=== PATIENT | male | born 1965 | race Asian ===

== ENCOUNTER 2019-06-28 14:37 | Emergency (ER) | payer SELFPAY ==
[~2019-06-28] VITALS: Ht 165.1 cm; Wt 50.3 kg
--- NOTE | 2019-06-28 14:40 | NUR ---
PT TAKEN TO BED 08 BY EMS
[2019-06-28 14:41] VITALS: BP 118/76
--- NOTE | 2019-06-28 14:45 | NUR ---
54 Y/O MALE BIBA ALS C/O DIZZINESS, ABD PAIN, AND NAUSEA X 1 WK WORSENING TODAY. STATES 8/10 SHARP PAIN TO EPIGASTRIC REGION. DENIES VOMITING/DIARRHEA. ABD SOFT/FLAT, NONTENDER TO PALP. BOWEL SOUNDS PRESENT X 4 QUAD. WAS GIVEN 4MG ODT ZOFRAN IN ROUTE. SEIZURE PADS PLACED ON BED. PT ON MONITOR. RR EVEN AND UNLABORED. VSS. MEDHX: SEIZURES, HYPERLIPIDEMIA ALLERGIES: NKA
--- NOTE | 2019-06-28 15:26 | NUR ---
DR ACE AT BEDSIDE EXAMINING PT
[2019-06-28] MEDS: NACL 0.9% 1,000 ML IV ONE (16:05)
--- NOTE | 2019-06-28 16:16 | NUR ---
PT TO CT VIA [facility]
[2019-06-28 16:20] LABS: BASOPHILS % (AUTO) 0.5 % (0.0-2.0); EOSINOPHILS # (AUTO) 0.4 K/uL (0-0.4); EOSINOPHILS % (AUTO) 4.5 % (0.0-4.0); HEMATOCRIT 37.4 % (36-52); HEMOGLOBIN 12.8 g/dL (12.0-18.0); LYMPHOCYTES # (AUTO) 2.1 K/uL (2.0-11.5); LYMPHOCYTES % (AUTO) 25.8 % (20.5-51.1); MEAN CORPUSCULAR HEMOGLOBIN 31 pg (27-31); MEAN CORPUSCULAR HGB CONC 34 g/dL (33-37); MEAN CORPUSCULAR VOLUME 89.4 fL (80-94); MONOCYTES # (AUTO) 1.1 K/uL (0.8-1.0); MONOCYTES % (AUTO) 13.3 % (1.7-9.3); NEUTROPHILS # (AUTO) 4.5 K/uL (1.8-7.7); NEUTROPHILS % (AUTO) 55.9 % (42.2-75.2); PLATELET COUNT (AUTO) 250 K/uL (140-450); RED BLOOD CELL COUNT(AUTO) 4.18 MIL/uL (4.20-6.10); RED CELL DISTRIBUTION WIDTH 12.4 % (11.6-13.7); WHITE BLOOD COUNT (AUTO) 8.1 K/uL (4.8-10.8)
--- NOTE | 2019-06-28 16:25 | NUR ---
RETURN FROM CT
[2019-06-28 16:41] LABS: ANION GAP 9.2 (8-16); CARBON DIOXIDE 34.9 mmol/L (21-32); POTASSIUM 4.1 mmol/L (3.5-5.1); TOTAL BILIRUBIN 0.4 mg/dL (0.0-1.0)
--- NOTE | 2019-06-28 16:41 | NUR ---
URINE COLLECTED FROM PT AND TAKEN TO LAB
[2019-06-28 17:33] LABS: APPEARANCE,URINE CLEAR (CLEAR); BILIRUBIN,URINE NEGATIVE (NEGATIVE); BLOOD, URINE NEGATIVE (NEGATIVE); COLOR,URINE YELLOW (YELLOW); LEUKOCYTE ESTERASE ,URINE NEGATIVE (NEGATIVE); NITRITE, URINE NEGATIVE (NEGATIVE); UGLUCOSE NEGATIVE (NEGATIVE)
--- NOTE | 2019-06-28 17:36 | NUR ---
PT SITTING UPRIGHT ON CELL PHONE, AWAKE AND ALERT. NO C/O PAIN AT THIS TIME. WILL CONTINUE TO MONITOR
--- NOTE | 2019-06-28 19:05 | NUR ---
REPORT GIVEN TO NIKIA GABRIEL. TRANSFER OF CARE AT THIS TIME
--- NOTE | 2019-06-28 19:22 | NUR ---
CALLED REPORT TO [facility] ER. REPORT GIVEN TO NIKIA ORR. ETA 45 MINUTES FOR TRANSFER.
--- NOTE | 2019-06-28 19:55 | NUR ---
FAMILY AT BEDSIDE. VSS ON MONITOR. SITTING UP IN BED.
--- NOTE | 2019-06-28 21:02 | NUR ---
[facility] TRANSPORT AT BEDSIDE
[2019-06-28 21:07] VITALS: BP 110/69
--- NOTE | 2019-06-28 21:07 | NUR ---
PT TAKEN BY ZELDA TO [facility] ER
--- NOTE | 2019-06-28 21:08 | NUR ---
PATIENT TRANSFERED TO [facility] BY [facility]. REPORT GIVEN. PATIENT AAO, VSS ON MONITOR AT TIME OF TRANSFER OF CARE.
== END 2019-06-28 21:08 | disposition short-term general hospital (02) ==
LOC: MED 14:37
DX: I63.9 Cerebral infarction, unspecified (principal); R56.9 Unspecified convulsions; E78.00 Pure hypercholesterolemia, unspecified
CPT/HCPCS: 36415; 70450; 71045; 80053; 81003; 83690; 84484; 85025; 93005; 96360; 99285; J7030; Q0092

== ENCOUNTER 2019-08-14 14:04 | Inpatient (IN) | payer MEDICAID ==
[~2019-08-14] VITALS: Ht 158.8 cm; Wt 51.3 kg
--- NOTE | 2019-08-14 14:41 | NUR ---
to ctscan via gurney , awake, alert, afibrile.
--- NOTE | 2019-08-14 14:55 | NUR ---
PT BACK FROM CTSCAN.
--- NOTE | 2019-08-14 14:58 | NUR ---
C/O EPIGASTRIC PAIN X 2 MONTHS. EPIGASTRIC TENDERNESS TO PALPATION. DENIES N/V/D. LAST BM YESTERDAY.PT AWAKE , ALERT, AFIBRILE , AMBULATORY WITH STEADY GAIT, SCE , CBS BLF.FLAT SOFT NABS, NONTENDER. HX: SEIZURE, HIGH CHOLESTEROL
--- NOTE | 2019-08-14 15:02 | NUR ---
PT COMFORTABLE IN BED , AWAKE , ALERT , SIDE RAILS UP X 1 AND LOCK.
[2019-08-14 16:02] LABS: BASOPHILS % (AUTO) 0.3 % (0.0-2.0); EOSINOPHILS # (AUTO) 0.2 K/uL (0-0.4); EOSINOPHILS % (AUTO) 3.3 % (0.0-4.0); HEMOGLOBIN 9.9 g/dL (12.0-18.0); LYMPHOCYTES # (AUTO) 1.6 K/uL (2.0-11.5); LYMPHOCYTES % (AUTO) 21.6 % (20.5-51.1); MEAN CORPUSCULAR HEMOGLOBIN 29 pg (27-31); MEAN CORPUSCULAR HGB CONC 33 g/dL (33-37); MEAN CORPUSCULAR VOLUME 88.7 fL (80-94); MONOCYTES # (AUTO) 1.1 K/uL (0.8-1.0); MONOCYTES % (AUTO) 15.2 % (1.7-9.3); NEUTROPHILS # (AUTO) 4.4 K/uL (1.8-7.7); NEUTROPHILS % (AUTO) 59.6 % (42.2-75.2); PLATELET COUNT (AUTO) 190 K/uL (140-450); RED BLOOD CELL COUNT(AUTO) 3.38 MIL/uL (4.20-6.10); RED CELL DISTRIBUTION WIDTH 13.1 % (11.6-13.7); WHITE BLOOD COUNT (AUTO) 7.4 K/uL (4.8-10.8)
--- NOTE | 2019-08-14 16:02 | NUR ---
LABS AT BEDSIDE .
[2019-08-14 16:22] LABS: ALBUMIN 3.5 g/dL (3.4-5.0); ANION GAP 14.1 (8-16); CARBON DIOXIDE 27.7 mmol/L (21-32); CREATININE 0.8 mg/dL (0.6-1.3); POTASSIUM 3.8 mmol/L (3.5-5.1); TOTAL BILIRUBIN 0.5 mg/dL (0.0-1.0)
--- NOTE | 2019-08-14 16:35 | NUR ---
DR GILBERT AT BEDSIDE REEVALAUTING PT.
--- NOTE | 2019-08-14 16:41 | NUR ---
DR GILBERT TALK TO SATELLITE COMMUNICATIONS ENGINEER VIA PHONE , REEVALUATE PT.
--- NOTE | 2019-08-14 17:01 | NUR ---
Dr GILBERT ON TRANSFER AND PUMPHOUSE OPERATOR CHIEF PHONE #[phone]
--- NOTE | 2019-08-14 18:20 | NUR ---
RECEIVED REPORT FROM ER NURSE DEB-NIKIA. PT ARRIVED TO UNIT VIA GURNEY AND SELF AMBULATED TO BED. PT STABLE AT THIS TIME. NO S/S OF RESPIRATORY DISTRESS OR DISCOMFORT NOTED AT THIS TIME. WILL CONTINUE TO MONITOR.
--- NOTE | 2019-08-14 18:20 | NUR ---
Patient will be admitted to care of DR ARAIZA. Admited to [facility]. Will go to room 106 b. Belongings list completed. Report to lucero schaefer.
[2019-08-14] MEDS ORDERED: MORPHINE SULFATE 2 MG/ML SYR IVP PRN (18:35)
[2019-08-14] MEDS ORDERED: ACETAMINOPHEN 325 MG TAB PO PRN (18:35)
[2019-08-14] MEDS ORDERED: HYDROcodone/APAP 5/325 MG 1 TAB TAB PO PRN (18:35)
[2019-08-14] MEDS ORDERED: LORazepam 2 MG/ML VIAL IM/IVP PRN (18:35)
[2019-08-14] MEDS ORDERED: ONDANSETRON 4 MG/2 ML VIAL IM/IVP PRN (18:35)
[2019-08-14] MEDS ORDERED: DOCUSATE SODIUM 100 MG GELCAP PO PRN (18:35)
--- NOTE | 2019-08-14 19:00 | NUR ---
IV STARTED ON THE LEFT FOREARM, BUT HAD TO TAKE IT OFF SINCE THE IV WAS NOT PATENT. Addendum: 08/15/19 at 0131 by Pepper Ernandez RN DENY MCGINNIS
--- NOTE | 2019-08-14 19:20 | NUR ---
RECEIVED REPORT FROM NIKIA CASEY AM SHIFT FOR CONTINUITY OF CARE, PT AWAKE, A O X 2-3, W/ SOME PERIOD OF FORGETFULNESS. PATIENT MONEGASQUE BUT UNDERSTANDS FILIPINO. SILVANA, DAUGHTER WAS ON THE PHONE W/ DR. MOCTEZUMA. TO GET CONSENT FOR CT SCAN OF CHEST/ PELVIS/ ABDOMEN WITH CONTRAST. ALTHOUGH PT CAN SIGN FOR HIMSELF ALSO. NO IV ON PATIENT WHEN RECEIVED FROM NIKIA CASEY. WILL HAVE TO START IV FOR THE CT SCAN W/ CONTRAST. PLACED PT ON LOW BED. WILL CONTINUE TO MONITOR
--- NOTE | 2019-08-14 19:30 | NUR ---
IV STARTED ON THE LEFT FOREARM, BUT HAD TO TAKE IT OFF SINCE THE IV WAS NOT PATENT.
[2019-08-14 20:00] VITALS: BP 151/89
--- NOTE | 2019-08-14 20:00 | NUR ---
ANOTHER ATTEMPT AT IV INSERTED ON THE RIGHT FOREARM G 20, PATENT AND INTACT. WITH TOTAL OF 2 ATTEMPTS. NO SWELLING, NO INFILTRATION. WILL START IV SOON DONE WITH THE PROCEDURE(CT SCAN OF THE CHEST/ PELVIS/ ABD W/ CONTRAST)
[2019-08-14] MEDS ORDERED: MECLIZINE 25 MG TAB PO PRN (20:30)
--- NOTE | 2019-08-14 21:15 | NUR ---
PATIENT BROUGHT TO THE CT SCAN RADIOLOGY DEPT BY DONNA VIA WHEELCHAIR.
[2019-08-14] MEDS ORDERED: GABA300C PO (21:45)
[2019-08-14] MEDS ORDERED: LIP80 PO (21:45)
[2019-08-14] MEDS ORDERED: KEP500 PO (21:45)
[2019-08-14] MEDS: DEXT 5% /NACL 0.9% 1,000 ML IV SCH (21:55)
[2019-08-14 22:05] LABS: PROTHROMBIN TIME 10.1 secs (10.8-13.4)
[2019-08-14 22:07] LABS: MAGNESIUM 1.9 mg/dL (1.8-2.4); PHOSPHORUS 4.7 mg/dL (2.5-4.9); THYROID STIMULATING HORMONE 1.68 uIU/mL (0.34-3.74)
[2019-08-14] MEDS ORDERED: ATORVASTATIN 80 MG TAB PO SCH (22:30)
--- NOTE | 2019-08-14 22:40 | NUR ---
PATIENT WHEELED BACK TO ROOM, NO SIGNS AND SYMPTOMS OF DISTRESS, PLACED BACK ON BED COMFORTABLY, WILL START ON THE IVF ORDER PT JUST CAME BACK FROM CT SCAN. WILL CONTINUE TO MONITOR
[2019-08-15] VITALS: BP 97/65
--- NOTE | 2019-08-15 03:00 | NUR ---
PT ABLE TO GO TO BATHROOM STEADY GAIT,INDEPENDENT. VOIDED 2X
[2019-08-15 04:00] VITALS: BP 98/60
--- NOTE | 2019-08-15 06:58 | NUR ---
PT EASILY AWAKENED, A O X 3, SOME MILD FORGETFULNESS, WILL ENDORSE TO NEXT SHIFT.
[2019-08-15] MEDS: DEXT 5% /NACL 0.9% 1,000 ML IV SCH (07:01)
--- NOTE | 2019-08-15 07:35 | NUR ---
BEDSIDE REPORT RECEIVED FROM SOLAR BUSINESS DEVELOPER NURSE, PT SLEEPING QUIETLY IN NO ACUTE DISTRESS, AROUSES EASILY TO VOICE, DENIES PAIN OR DISCOMFORT, RESP EVEN UNLABORED ON RA, SKIN WARM DRY COLOR WNL, POC REVIEWED, NO IMMEDIATE NEEDS AT THIS TIME WILL CONTINUE TO MONITOR.
[2019-08-15 07:51] LABS: BASOPHILS # (AUTO) 0.1 K/uL (0.00-0.22); BASOPHILS % (AUTO) 0.7 % (0.0-2.0); EOSINOPHILS # (AUTO) 0.4 K/uL (0-0.4); EOSINOPHILS % (AUTO) 4.8 % (0.0-4.0); HEMATOCRIT 30.1 % (36-52); HEMOGLOBIN 10.1 g/dL (12.0-18.0); LYMPHOCYTES # (AUTO) 1.9 K/uL (2.0-11.5); MEAN CORPUSCULAR HEMOGLOBIN 30 pg (27-31); MEAN CORPUSCULAR HGB CONC 33 g/dL (33-37); MEAN CORPUSCULAR VOLUME 88.8 fL (80-94); MONOCYTES # (AUTO) 1.1 K/uL (0.8-1.0); NEUTROPHILS # (AUTO) 4.1 K/uL (1.8-7.7); NEUTROPHILS % (AUTO) 54.5 % (42.2-75.2); PLATELET COUNT (AUTO) 190 K/uL (140-450); RED CELL DISTRIBUTION WIDTH 13.1 % (11.6-13.7); WHITE BLOOD COUNT (AUTO) 7.6 K/uL (4.8-10.8)
[2019-08-15 08:00] VITALS: BP 110/68
[2019-08-15 08:07] LABS: CARBON DIOXIDE 26.6 mmol/L (21-32); CREATININE 0.8 mg/dL (0.6-1.3); POTASSIUM 3.6 mmol/L (3.5-5.1)
[2019-08-15 08:11] LABS: CHOL/HDL RATIO 5.2 (1-4.5)
--- NOTE | 2019-08-15 08:42 | NUR ---
PT SITTING UP IN BED TALKING ON THE PHONE, AM MEDS GIVEN, SWALLOWS WITHOUT PROBLEM, DENIES PAIN, STATES HE HAS NO APPETITE, DENIES NAUSEA OR VOMITING, ENCOURAGED TO AT LEAST SMALL AMT, ABD SOFT, NON TENDER TO PALP, WILL CONTINUE TO MONITOR
[2019-08-15] MEDS ORDERED: GABAPENTIN 300 MG CAP PO SCH (09:00)
[2019-08-15] MEDS ORDERED: levETIRAcetam 500 MG TAB PO SCH (09:00)
[2019-08-15] MEDS ORDERED: PANTOPRAZOLE 40 MG INJ VIAL IVP SCH (09:00)
--- NOTE | 2019-08-15 09:37 | NUR ---
PATIENT HAS BEEN SCREENED AND CATEGORIZED HIGH NUTRITION RISK. PATIENT WILL BE SEEN WITHIN 1-2 DAYS OF ADMISSION. 08/15/19-08/16/[address]
[2019-08-15] MEDS ORDERED: NACL 0.9% 1,000 ML IV SCH (10:45)
--- NOTE | 2019-08-15 10:55 | NUR ---
PT DOWN GRADED TO M/S STATUS, TELE MONITOR REMOVED AT THIS TIME, PT SITTING UP IN BED IN NO ACUTE DISTRESS
--- NOTE | 2019-08-15 13:45 | NUR ---
08/15/19 RD INITIAL ASSESSMENT COMPLETED PLEASE REFER TO NUTRITION ASSESSMENT UNDER CARE ACTIVITY FOR ESTIMATED NUTRITIONAL NEEDS. 1. CONTINUE CARDIAC DIET TOLERATED 2. RECOMMEND ENSURE BID 3. ENCOURAGE PO INTAKE 4. RD PROVIDED NUTRITION EDUCATION ON A HIGH PROTEIN AND CALORIE DIET, ONCOLOGY NUTRITION AND GENERAL HEALTHY EATING 5. RD TO FOLLOW-UP 2-3 DAYS, HIGH RISK JIMMY MCLAIN RD
--- NOTE | 2019-08-15 15:50 | NUR ---
PT LYING DOWN IN BED, RESTING QUIETLY, AROUSES WITH VOICE, PT INFORMED OF DC ORDER, SPOKE TO HIS DAUGHTER SILVANA ON THE PHONE, SHE WILL PICK HIM UP AT [phone] -[phone]. WILL PREPARE HIM FOR DC
[2019-08-15 16:00] VITALS: BP 115/68
--- NOTE | 2019-08-15 18:20 | NUR ---
DC INSTRUCTIONS GIVEN AND EXPLAINED TO PT VIA TELEPHONE MULTIPLE DRUM SANDER HELPER #[id number], PT VERBALIZED FULL UNDERSTANDING, IV DC'D, CATH TIP INTACT, BLEEDING CONTROLLED, PT TRANSFERED TO WITHOUT ASSIST, ESCORTED TO FRONT LOBBY BY EXTRACTOR OPERATOR SOLVENT PROCESS.
[2019-08-16 12:06] LABS: FOLIC ACID 4.6 ng/mL (>3.0)
== END 2019-08-15 18:29 | disposition home or self-care (01) | DRG 694 ==
LOC: MED 14:04 → MTU 16:57
PROVIDERS: ADMIT General Practice; ATTEND General Practice
DX: C79.89 Secondary malignant neoplasm of other specified sites (principal); I69.351 Hemiplegia and hemiparesis following cerebral infarction affecting right dominant side; R18.8 Other ascites; D64.9 Anemia, unspecified; G40.909 Epilepsy, unspecified, not intractable, without status epilepticus; E78.5 Hyperlipidemia, unspecified; N40.0 Benign prostatic hyperplasia without lower urinary tract symptoms
CPT/HCPCS: 36415; 70450; 71260; 80048; 80053; 82150; 82607; 82728; 82746; 83036; 83540; 83690; 83735; 83880; 84100; 84443; 85025; 85045; 85610; 85730; 87081; 99285; C9113; J1644; J7030; J7042; Q9967

== ENCOUNTER 2019-08-27 15:38 | Inpatient (IN) | payer OTHER, SELFPAY ==
[~2019-08-27] VITALS: Ht 162.6 cm; Wt 52.2 kg
[~2019-08-27 15:38] MED LIST: GABA300C PO; KEP500 PO; LIP80 PO
--- NOTE | 2019-08-27 15:38 | NUR ---
BIBA TAKEN TO BED 11
[2019-08-27 15:44] VITALS: BP 93/58
--- NOTE | 2019-08-27 15:49 | NUR ---
DR. GILBERT EVALUATING PT AT BEDSIDE
--- NOTE | 2019-08-27 15:50 | NUR ---
54/M BIBA C/O DIZZINESS AND GENERALIZED WEAKNESS SINCE THIS MORNING UPON WAKE UP. PT CALLED [phone] 30 MINS AGO DUE TO THE SEVERE DIZINESS AND WEAKNESS SINCE WAKING UP FROM NAP. GCS 15, A&OX4. PT DENIES COUGH, FEVER, CP, SOB, N/V/D, RECENT TRAVEL, OR SICK CONTACTS WITH COVID-19 CONFIRMED PEOPLE. PATIENT STATES PAIN OF 0/10 AT THIS TIME; VSS; PATIENT POSITIONED FOR COMFORT; HOB ELEVATED; BEDRAILS UP X2; BED DOWN. SEIZURE PADS PLACED ON TOO BEDRAILS. ER MD MADE AWARE OF PT STATUS.
--- NOTE | 2019-08-27 15:55 | NUR ---
PRIMARY RN AT BEDSIDE OBTAINING EKG.
--- NOTE | 2019-08-27 16:26 | NUR ---
PHLEBOTMIST AT BEDSIDE FOR BLOOD DRAW
[2019-08-27] MEDS ORDERED: NACL 0.9% 1,000 ML IV ONE (16:35)
[2019-08-27 16:40] LABS: BASOPHILS # (AUTO) 0.1 K/uL (0.00-0.22); EOSINOPHILS # (AUTO) 0.1 K/uL (0-0.4); EOSINOPHILS % (AUTO) 2.5 % (0.0-4.0); HEMATOCRIT 26.1 % (36-52); HEMOGLOBIN 8.7 g/dL (12.0-18.0); LYMPHOCYTES # (AUTO) 1.4 K/uL (2.0-11.5); LYMPHOCYTES % (AUTO) 23.9 % (20.5-51.1); MEAN CORPUSCULAR HEMOGLOBIN 30 pg (27-31); MEAN CORPUSCULAR HGB CONC 33 g/dL (33-37); MEAN CORPUSCULAR VOLUME 89.7 fL (80-94); NEUTROPHILS # (AUTO) 3.3 K/uL (1.8-7.7); NEUTROPHILS % (AUTO) 55.6 % (42.2-75.2); PLATELET COUNT (AUTO) 231 K/uL (140-450); RED BLOOD CELL COUNT(AUTO) 2.91 MIL/uL (4.20-6.10); RED CELL DISTRIBUTION WIDTH 13.2 % (11.6-13.7); WHITE BLOOD COUNT (AUTO) 5.9 K/uL (4.8-10.8)
[2019-08-27 16:43] LABS: BILIRUBIN,URINE 1+ (NEGATIVE); BLOOD, URINE NEGATIVE (NEGATIVE); COLOR,URINE YELLOW (YELLOW); LEUKOCYTE ESTERASE ,URINE NEGATIVE (NEGATIVE); NITRITE, URINE NEGATIVE (NEGATIVE); PH,URINE 5.5 (5.0-9.0); UGLUCOSE NEGATIVE (NEGATIVE)
[2019-08-27 16:46] LABS: APPEARANCE,URINE CLEAR (CLEAR)
[2019-08-27 16:57] LABS: ALBUMIN 3.3 g/dL (3.4-5.0); ANION GAP 12.7 (8-16); CARBON DIOXIDE 27.4 mmol/L (21-32); POTASSIUM 4.1 mmol/L (3.5-5.1); TOTAL BILIRUBIN 0.4 mg/dL (0.0-1.0)
--- NOTE | 2019-08-27 17:20 | NUR ---
ASSISTED PT TO AMBULATE AROUND THE BED. PT STATES HE IS NOT ABLE TO AMBULATE AT THIS TIME DUE TO THE SEVERE DIZZINESS. DR. GILBERT NOTIFIED. PLACED PT IN THE BED IN COMFORTABLE POSITION. PT IS ON THE MONITOR.
[2019-08-27] MEDS ORDERED: MIDODRINE 5 MG TAB PO ONE (17:40)
--- NOTE | 2019-08-27 18:20 | NUR ---
SPOKE TO SILVANA [phone] AND BEEN TOLD THAT PT ONLY TAKES ATORVASTATIN, KEPPRA, GABAPENTIN, AND NOT TAKE ANY MEDICATION FOR HIGH BLOOD PRESSURE. DR. GILBERT NOTIFIED.
--- NOTE | 2019-08-27 18:38 | NUR ---
SPOKE TO PT'S DAUGHTER SILVANA [phone] AND NOTIFIED HER PT NEEDS HOSPITALIZATION DUE TO HYPOTENSION. BP 86/47MMHG AT THIS TIME AND NOTIFIED PT'S FAMILY MEMBER. MEDICATIONS' DOSEGE INFO OBTAINED VIA SILVANA.
[2019-08-27] MEDS ORDERED: LORazepam 2 MG/ML VIAL IM/IVP PRN (19:00)
[2019-08-27] MEDS ORDERED: ONDANSETRON 4 MG/2 ML VIAL IM/IVP PRN (19:00)
[2019-08-27] MEDS ORDERED: MORPHINE SULFATE 2 MG/ML SYR IVP PRN (19:00)
[2019-08-27] MEDS ORDERED: DOCUSATE SODIUM 100 MG GELCAP PO PRN (19:00)
[2019-08-27] MEDS ORDERED: ZOLPIDEM 5 MG TAB PO PRN (19:00)
[2019-08-27] MEDS ORDERED: ACETAMINOPHEN 325 MG TAB PO PRN (19:00)
--- NOTE | 2019-08-27 19:15 | NUR ---
PT ARRIVED TO UNIT VIA WHEELCHAIR. RECEIVED REPORT FROM ER NURSE. PT IS AWAKE, ALERT, AND ORIENTED. AMBULATORY BUT WITH MILD WEAKNESS. RESPIRATIONS ARE EVEN AND UNLABORED TO ROOM AIR. SKIN IS DRY AND INTACT. ABDOMEN IS FLAT AND SOFT. IV ACCESS ON RIGHT ARM G20 PATENT AND INTACT. DENIES ANY PAIN OR DISCOMFORT AT THIS TIME. PT GREETED AND ORIENTED TO ROOM. PLAN OF CARE DISCUSSED. PT VERBALIZED UNDERSTANDING. DINNER WAS ORDERED. MRSA SWAB DONE. PT HAS NO OTHER REQUESTS AT THIS TIME. SAFETY MEASURES IN PLACE. CALL LIGHT WITHIN REACH. WILL CONTINUE TO MONITOR.
--- NOTE | 2019-08-27 19:15 | NUR ---
Patient will be admitted to care of HYPOTENSION. Admited to TELEMETRY. Will go to room 107B. Belongings list completed. Report to NIKIA ACEVEDO. Addendum: 08/27/19 at 1920 by JULIO BRIM POUNCER MACHINE OPERATOR, JARRET, CALLED FOR [facility] AND SENT TO ROOM [facility]
--- NOTE | 2019-08-27 19:15 | NUR ---
INITIAL VITAL SIGNS FOLLOWS: BP-88/54, HR-71, RR-18, TEMP-98.1, P5REV-271%.
[2019-08-27 19:48] LABS: BARBITURATE, URINE NEGATIVE ng/ml (NEG <=200); BENZODIAZEPINE, URINE NEGATIVE ng/mL (NEG <=200); CANNABINOID, URINE POSITIVE ng/mL (NEG <=50); COCAINE, URINE NEGATIVE ng/mL (NEG <=300); OPIATE, URINE NEGATIVE ng/mL (NEG <=2000); PHENCYCLIDINE SCREEN,URINE NEGATIVE ng/mL (NEG <=25)
[2019-08-27 19:59] LABS: PROTHROMBIN TIME 10.2 secs (10.8-13.4)
[2019-08-27 20:00] VITALS: BP 88/54
[2019-08-27 20:09] LABS: CHOL/HDL RATIO 3.9 (1-4.5); FREE T4 (FREE THYROXINE) 1.49 ng/dL (0.76-1.46); MAGNESIUM 1.8 mg/dL (1.8-2.4); THYROID STIMULATING HORMONE 1.23 uIU/mL (0.34-3.74)
[2019-08-27] MEDS ORDERED: NACL 0.9% 500 ML IV ONE (20:15)
[2019-08-27] MEDS: NACL 0.9% 1,000 ML IV SCH (20:32)
--- NOTE | 2019-08-27 20:36 | NUR ---
NSS 500 ML BOLUS GIVEN ORDERED. WILL CONTINUE TO MONITOR.
--- NOTE | 2019-08-27 21:10 | NUR ---
NSS BOLUS FINISHED. LATEST BP - 94/57. PT DENIES ANY DISCOMFORT. WILL CONTINUE TO MONITOR.
[2019-08-27] MEDS: HYDROcodone/APAP 5/325 MG 1 TAB TAB PO PRN (22:40)
--- NOTE | 2019-08-27 22:40 | NUR ---
PT COMPLAINS OF BACK ACHE 09/26. PRN NORCO GIVEN ORDERED. WILL CONTINUE TO MONITOR.
--- NOTE | 2019-08-27 23:57 | NUR ---
VITAL SIGNS WITHIN NORMAL LIMITS. VERBALIZED RELIEF FROM BACK PAIN. NO REQUESTS MADE AT THIS TIME. KEPT COMFORTABLE. CALL LIGHT WITHIN REACH. WILL CONTINUE TO MONITOR.
[2019-08-28] VITALS: BP 90/53
--- NOTE | 2019-08-28 02:10 | NUR ---
PT IS ASLEEP. RESPIRATIONS EVEN AND UNLABORED. NO S/SX OF DISTRESS NOTED. CALL LIGHT WITHIN REACH. WILL CONTINUE TO MONITOR.
[2019-08-28 04:00] VITALS: BP 94/56
--- NOTE | 2019-08-28 04:02 | NUR ---
ORTHOSTATIC BP FOLLOWS: SUPINE- BP: 78/47, HR: 66 SITTING- BP: 85/51, HR: 78 STANDING- BP: 94/56, HR: 68 PT DENIES ANY DIZZINESS OR DISCOMFORT. Addendum: 08/28/19 at 0415 by Luca Prince RN Amended: Links added.
[2019-08-28] MEDS: NACL 0.9% 1,000 ML IV SCH ×2 (05:04→14:56)
[2019-08-28 06:18] LABS: BASOPHILS % (AUTO) 0.6 % (0.0-2.0); EOSINOPHILS # (AUTO) 0.2 K/uL (0-0.4); EOSINOPHILS % (AUTO) 3.4 % (0.0-4.0); HEMATOCRIT 25.7 % (36-52); HEMOGLOBIN 8.5 g/dL (12.0-18.0); LYMPHOCYTES # (AUTO) 1.8 K/uL (2.0-11.5); LYMPHOCYTES % (AUTO) 26.1 % (20.5-51.1); MEAN CORPUSCULAR HEMOGLOBIN 30 pg (27-31); MEAN CORPUSCULAR HGB CONC 33 g/dL (33-37); MEAN CORPUSCULAR VOLUME 90.3 fL (80-94); MONOCYTES # (AUTO) 1.3 K/uL (0.8-1.0); MONOCYTES % (AUTO) 18.6 % (1.7-9.3); NEUTROPHILS # (AUTO) 3.5 K/uL (1.8-7.7); NEUTROPHILS % (AUTO) 51.3 % (42.2-75.2); PLATELET COUNT (AUTO) 235 K/uL (140-450); RED BLOOD CELL COUNT(AUTO) 2.84 MIL/uL (4.20-6.10); RED CELL DISTRIBUTION WIDTH 13.8 % (11.6-13.7); WHITE BLOOD COUNT (AUTO) 6.8 K/uL (4.8-10.8)
[2019-08-28 06:39] LABS: ANION GAP 10.9 (8-16); CARBON DIOXIDE 25.9 mmol/L (21-32); CREATININE 0.9 mg/dL (0.6-1.3); POTASSIUM 3.8 mmol/L (3.5-5.1)
[2019-08-28 06:42] LABS: MAGNESIUM 1.8 mg/dL (1.8-2.4); PHOSPHORUS 3.7 mg/dL (2.5-4.9)
--- NOTE | 2019-08-28 07:16 | NUR ---
GAVE REPORT TO DAY SHIFT NURSE FOR CONTINUITY OF CARE. PT IN STABLE CONDITION.
--- NOTE | 2019-08-28 07:17 | NUR ---
RECEIVED REPORT FROM POKER MANAGER NURSE, FOR CONTINUITY OF CARE. PT IS AAOX4. RESPIRATIONS ARE EVEN AND UNLABORED, BREATHING TO RA. R HAND 20G IV, IS PATENT AND INTACT, FLUIDS RUNNING PER ORDERS. SEIZURE PRECAUTIONS IN PLACE. REVIEWED PLAN OF CARE WITH PATIENT. TELE MONITOR ATTACHED. SAFETY MEASURES IN PLACE; CALL LIGHT WITHIN REACH, BED IN LOW POSITION. WILL CONTINUE TO MONITOR.
[2019-08-28 08:00] VITALS: BP 101/63
[2019-08-28] MEDS ORDERED: MIDODRINE 5 MG TAB PO SCH (08:00)
--- NOTE | 2019-08-28 08:03 | NUR ---
SCHEDULED MIDODRINE GIVEN; BP: 87/56. MEDICATION EDUCATION PROVIDED. PT TOLERATED PO MED WELL. NO DISTRESS NOTED. WILL CONTINUE TO MONITOR.
--- NOTE | 2019-08-28 08:58 | NUR ---
PATIENT HAS BEEN SCREENED AND CATEGORIZED MODERATE NUTRITION RISK. PATIENT WILL BE SEEN WITHIN 3-5 DAYS OF ADMISSION. 08/30/19 09/01/[address]
[2019-08-28] MEDS ORDERED: levETIRAcetam 500 MG TAB PO SCH (09:00)
[2019-08-28] MEDS ORDERED: GABAPENTIN 300 MG CAP PO SCH (09:00)
--- NOTE | 2019-08-28 09:31 | NUR ---
SCHEDULED MEDS GIVEN. PT TOLERATED PO MEDS WELL. MEDICATION EDUCATION PROVIDED. NO DISTRESS NOTED. SAFETY MEASURES IN PLACE. TELE MONITOR ATTACHED. WILL CONTINUE TO MONITOR.
--- NOTE | 2019-08-28 09:53 | NUR ---
PT AT BEDSIDE WITH PATIENT.
[2019-08-28 10:00] VITALS: BP 107/65
--- NOTE | 2019-08-28 10:35 | NUR ---
PER PHYSICAL THERAPIST, PT'S VITAL SIGNS PRE AMBULATION: B/P: 101/63; HR: 80; SPO2: 100%; POST AMBULATION V/S: B/P; 107/65. HR: 70; SPO2: 98.
--- NOTE | 2019-08-28 11:38 | NUR ---
PHARMACOVIGILANCE SCIENTIST NOTE: Basic Screen: Yes High Risk DC Screen [place]: JUSTIN [place] Pre-Admission Living Arrangements: Lives with Other Prior ADL Independent Current Home Health Name/Tel: N/A Current DME/02 Name/Tel: N/A Current Hospice Name/Tel: N/A Current Dialysis Name/Tel: N/A Healthcare Decision Maker: Patient Advance Directive No Physician Orders for Life Sustaining Treatment Form No Patient/Family Have Educational Needs No Discipline: Case Mgt/Social Svcs Tentative Discharge Plan/Destination: No Needs Identified Will require assistance post discharge: No Referred to [place] Tender: No Tentative Discharge Plan Summary: PATIENT IS A 54-YEAR-OLD MALE ADMITTED FOR YPOTENSION. PATIENT HAS PMHX OF INTRA-ABDOMINAL W/ METS, CVA W/SEIZURE DISORDER, AND HLD. PATIENT WAS ADMITTED FROM HOME WHERE HE LIVES WITH HIS AND 3 DAUGHTERS. SW MET WITH PATIENT AT BEDSIDE TO VERIFY DEMOGRAPHICS. PATIENT REPORTED NO HISTORY OF MENTAL HEALTH AND NO HISTORY OF SUBSTANCE ABUSE. TENTATIVE DISCHARGE PLAN IS FOR PATIENT TO RETURN HOME. NO FURTHER NEEDS IDENTIFIED. Signature: CARIDAD RIVAS Date: August 28, 2019 Time: 11:
--- NOTE | 2019-08-28 13:58 | NUR ---
DC PLANNIN YRS OLD MALE PATIENT WAS ADMITTED FROM HOME WITH A DX OF HYPOTENSION. PT HAS A HX OF INTRA-ABDOMINAL MALIGNANCY WITH METS , CVA SEIZURE DISORDER AND HLD. CXR SHOWED ENLARGED CARDIAC [place] ADMINISTERED MIDODRINE 5MG POX1 CORRECTING HYPOTENSION , IVF, SEIZURE PRECAUTION, CONTINUE HOME MEDS ,PT EVAL. DC PLAN TO GO HOME WHEN STABLE CM TO FOLLOW.
[2019-08-28 16:00] VITALS: BP 101/62
[2019-08-28] MEDS: HYDROcodone/APAP 5/325 MG 1 TAB TAB PO PRN (16:47)
--- NOTE | 2019-08-28 16:47 | NUR ---
PT COMPLAINTS OF 4/10 ABDOMINAL PAIN. PRN NORCO GIVEN. WILL REASSESS PAIN. SAFETY MEASURES IN PLACE.
[2019-08-28] MEDS ORDERED: DOCU-299 PO (17:00)
--- NOTE | 2019-08-28 18:01 | NUR ---
REASSESSED PT'S PAIN; PT DENIES PAIN. DISCHARGE INSTRUCTIONS GIVEN AND EXPLAINED, WITH PT VERBALIZING UNDERSTANDING. ALL DISCHARGE PAPERWORK SIGNED. ARM BANDS, TELE MONITOR, AND IV REMOVED, WITH CATHETER INTACT. PT'S DAUGHTER IS WAITING OUTSIDE TO TAKE THE PT HOME. PT IS WAS ESCORTED TO THE LOBBY VIA WHEELCHAIR BY WREATH MACHINE TENDER. PT WEARING A MASK. ALL OF THE PT'S BELONGINGS IN HIS POSSESSION, ALONG WITH DISCHARGE PACKET. PT IS IN STABLE CONDITION.
[2019-08-28] MEDS ORDERED: ATORVASTATIN 80 MG TAB PO SCH (21:00)
[2019-08-29 13:06] LABS: FOLIC ACID 7.5 ng/mL (>3.0)
== END 2019-08-28 18:00 | disposition home or self-care (01) | DRG 74 ==
LOC: MED 15:38 → MTU 18:56
PROVIDERS: ADMIT General Practice; ATTEND General Practice
DX: G90.8 Other disorders of autonomic nervous system (principal); I95.9 Hypotension, unspecified; G40.909 Epilepsy, unspecified, not intractable, without status epilepticus; E78.5 Hyperlipidemia, unspecified; D64.9 Anemia, unspecified; Z86.73 Personal history of transient ischemic attack (TIA), and cerebral infarction without residual deficits
CPT/HCPCS: 36415; 71045; 80048; 80053; 80305; 81003; 82150; 82607; 82728; 82746; 83036; 83540; 83690; 83735; 83880; 84100; 84439; 84443; 84484; 85025; 85045; 85610; 85730; 87081; 93005; 96360; 96361; 97110; 97116; 97161-GP; 99285; J1644; J7030; Q0092

== ENCOUNTER 2019-09-02 13:07 | Emergency (ER) | payer OTHER, SELFPAY ==
[~2019-09-02] VITALS: Ht 165.1 cm; Wt 59.0 kg
[~2019-09-02 13:07] MED LIST changes: +DOCU-299 PO
[2019-09-02 13:15] VITALS: BP 116/73
[2019-09-02] MEDS ORDERED: MORPHINE SULFATE 4 MG/ML SYR IM ONE (13:35)
--- NOTE | 2019-09-02 13:40 | NUR ---
54 Y/O C/O ABD PAIN X1 DAY, PT DENIES ANY VOMITING, DIARRHEA. RESP EVEN AND UNLABORED. DENIES ANY COUGH/SOB/FEVER. ABD SOFT/NON TENDER. BOWEL SOUNDS NORMOACTIVE IN ALL QUADRANTS. CAP REFILL <3. PT DOES NOT APPEAR TO BE IN ANY DISTRESS AT THIS TIME. PMH: STOMACH CX NKA
[2019-09-02 13:56] VITALS: BP 116/73
--- NOTE | 2019-09-02 13:56 | NUR ---
Patient discharged with v/s stable. Written and verbal after care instructions given and explained. Patient verbalized understanding. Ambulatory with steady gait. All questions addressed prior to discharge. Advised to follow up with PMD.
== END 2019-09-02 13:56 | disposition home or self-care (01) ==
LOC: MED 13:07
DX: R10.9 Unspecified abdominal pain (principal); R14.0 Abdominal distension (gaseous); Z86.73 Personal history of transient ischemic attack (TIA), and cerebral infarction without residual deficits; Z85.028 Personal history of other malignant neoplasm of stomach; Z79.899 Other long term (current) drug therapy; Z98.890 Other specified postprocedural states
CPT/HCPCS: 81002; 96372; 99283; J2270

== ENCOUNTER 2019-09-09 09:19 | Inpatient (IN) | payer SELFPAY ==
[~2019-09-09] VITALS: Ht 157.5 cm; Wt 51.3 kg
--- NOTE | 2019-09-09 09:19 | NUR ---
Patient BIBA ALS, transferred to bed 7. RN evaluating patient at bedside.
[2019-09-09 09:30] VITALS: BP 119/84
[2019-09-09] MEDS ORDERED: LORazepam 2 MG/ML VIAL IVP ONE ×2 (09:35→10:15)
[2019-09-09] MEDS ORDERED: levETIRAcetam 1,000 MG in NACL 0.9% 100 ML IV ONE (09:35)
[2019-09-09] MEDS ORDERED: NACL 0.9% 1,000 ML IV ONE (09:35)
[2019-09-09] MEDS ORDERED: ASPI-1822 PO (09:40)
[2019-09-09] MEDS ORDERED: levETIRAcetam 100 MG/ML VIAL IV ONE (09:42)
[2019-09-09] MEDS ORDERED: GABA300C PO (09:45)
[2019-09-09] MEDS ORDERED: LEVE500T9 PO (09:45)
--- NOTE | 2019-09-09 09:45 | NUR ---
PT BIBA FROM HOME. PER EMS FAMILY STATED THAT POSSIBLE SEIZURE, UNWITNESS. PT IS NON-VERBAL WHEN PRESENTS TO THE ER. UNABLE TO ANSWER ANY QUESTIONS. PT IS TACHYCARDIC AND RESTLESS. PATIENT'S PAIN IS 0/10 ON FLACC SCALE AT THIS TIME; PT IS ON THE MONITOR; PATIENT POSITIONED FOR COMFORT; HOB ELEVATED; BEDRAILS UP X2; BED DOWN. SEIZURE PADS PLACED ON BILATERAL BEDRAILS. ER MD MADE AWARE OF PT STATUS.
[2019-09-09] MEDS ORDERED: ACETAMINOPHEN 650 MG SUPP RC ONE (09:55)
--- NOTE | 2019-09-09 10:15 | NUR ---
PT IS HAVING SEIZURE ACTIVITY AT THIS TIME. DR. GILBERT PRESENTS TO PT AT BEDSIDE RIGHT AWAY. ATIVAN 2MG IV PUSH VERBAL ORDER RECEIVED FROM DR. GILBERT.
[2019-09-09 10:33] LABS: BASOPHILS # (AUTO) 0.1 K/uL (0.00-0.22); BASOPHILS % (AUTO) 1.2 % (0.0-2.0); EOSINOPHILS # (AUTO) 0.1 K/uL (0-0.4); EOSINOPHILS % (AUTO) 0.5 % (0.0-4.0); HEMATOCRIT 24.2 % (36-52); HEMOGLOBIN 7.9 g/dL (12.0-18.0); LYMPHOCYTES % (AUTO) 18.5 % (20.5-51.1); MEAN CORPUSCULAR HEMOGLOBIN 29 pg (27-31); MEAN CORPUSCULAR HGB CONC 33 g/dL (33-37); MEAN CORPUSCULAR VOLUME 88.8 fL (80-94); MONOCYTES # (AUTO) 1.2 K/uL (0.8-1.0); MONOCYTES % (AUTO) 10.6 % (1.7-9.3); NEUTROPHILS # (AUTO) 7.7 K/uL (1.8-7.7); NEUTROPHILS % (AUTO) 69.2 % (42.2-75.2); PLATELET COUNT (AUTO) 280 K/uL (140-450); RED BLOOD CELL COUNT(AUTO) 2.73 MIL/uL (4.20-6.10); RED CELL DISTRIBUTION WIDTH 13.6 % (11.6-13.7); WHITE BLOOD COUNT (AUTO) 11.1 K/uL (4.8-10.8)
[2019-09-09 10:35] LABS: BILIRUBIN,URINE NEGATIVE (NEGATIVE); BLOOD, URINE NEGATIVE (NEGATIVE); COLOR,URINE YELLOW (YELLOW); LEUKOCYTE ESTERASE ,URINE NEGATIVE (NEGATIVE); NITRITE, URINE NEGATIVE (NEGATIVE); UGLUCOSE NEGATIVE (NEGATIVE)
[2019-09-09 10:58] LABS: APPEARANCE,URINE CLOUDY (CLEAR)
--- NOTE | 2019-09-09 10:58 | NUR ---
ACCOMPANIED PT TO CT SCAN. PT WENT TO CT SCAN VIA GURNEY AND ON THE MONITOR.
[2019-09-09 10:59] LABS: RBC,URINE NONE SEEN /HPF (0-5); URINE AMORPHOUS URATE 1+ /HPF (None Seen); WBC,URINE 0-5 /HPF (0-5)
--- NOTE | 2019-09-09 11:00 | NUR ---
Patient returned from CT scan.
[2019-09-09 11:04] LABS: BARBITURATE, URINE NEGATIVE ng/ml (NEG <=200); BENZODIAZEPINE, URINE NEGATIVE ng/mL (NEG <=200); CANNABINOID, URINE POSITIVE ng/mL (NEG <=50); COCAINE, URINE NEGATIVE ng/mL (NEG <=300); OPIATE, URINE NEGATIVE ng/mL (NEG <=2000); PHENCYCLIDINE SCREEN,URINE NEGATIVE ng/mL (NEG <=25)
[2019-09-09 11:12] LABS: ALBUMIN 3.2 g/dL (3.4-5.0); ANION GAP 13.8 (8-16); ASPARTATE AMINOTRANSFERASE 20 U/L (15-37); CARBON DIOXIDE 22.9 mmol/L (21-32); CHLORIDE 104 mmol/L (98-107); GFR ARICAN-AMERICAN 101 mL/min (>90); GLUCOSE 138 mg/dL (74-106); POTASSIUM 3.7 mmol/L (3.5-5.1); SODIUM SERUM 137 mmol/L (136-145); TOTAL BILIRUBIN 0.4 mg/dL (0.0-1.0); UREA NITROGEN, BLOOD 17 mg/dL (7-18)
[2019-09-09] MEDS ORDERED: PIPERACILLIN/TAZOBACTAM 3.375 GM VIAL IV ONE (11:14)
[2019-09-09] MEDS: PIPERACILLIN/TAZOBACTAM 3.375 GM in DEXTROSE 5% 50 ML IV ONE ×2 (11:15→11:23)
--- NOTE | 2019-09-09 12:02 | NUR ---
PT IS RESTING IN THE BED. NO SEIZURE ACTIVIES NOW. PT'S VITAL SIGNS ARE STABLE BUT TACHYCARDIA WITH HR 130 SHOWS ON THE MONITOR.
[2019-09-09 12:09] LABS: PROTHROMBIN TIME 10.6 secs (10.8-13.4)
--- NOTE | 2019-09-09 13:05 | NUR ---
PT IS SLEEPING IN THE BED. VSS SHOWS ON THE MONITOR.
[2019-09-09] MEDS ORDERED: MORPHINE SULFATE 2 MG/ML SYR IVP PRN ×2 (13:20→14:35)
[2019-09-09] MEDS ORDERED: HYDROcodone/APAP 7.5/325 MG 1 TAB PO PRN (13:20)
[2019-09-09] MEDS ORDERED: ACETAMINOPHEN 325 MG TAB PO PRN (13:20)
[2019-09-09] MEDS ORDERED: ONDANSETRON 4 MG/2 ML VIAL IM/IVP PRN (13:20)
[2019-09-09] MEDS ORDERED: DOCUSATE SODIUM 100 MG GELCAP PO PRN (13:20)
[2019-09-09 14:25] VITALS: BP 146/81
--- NOTE | 2019-09-09 14:25 | NUR ---
RECEIVED PATIENT FROM ED NURSE FOR CONTINUITY OF CARE VIA [facility]. INITIAL ASSESSMENT: PATIENT IS AWAKE, CONFUSED, UNABLE TO COMMUNICATE. PER ED NURSE, PATIENT IS BELARUSIAN SPEAKING. DX SEIZURE. RESPIRATIONS EVEN AND UNLABORED, ROOM AIR. VISIBLE CHEST RISE AND FALL NOTED. SKIN WARM, DRY, AND INTACT. IV IN THE LEFT AC, GAUGE 18. SALINE LOCK. ABDOMEN ROUND AND TENDER. HYPOACTIVE X4 QUADS. PATIENT IS ON SEIZURE AND FALL PRECAUTIONS. BED IN LOW POSITION. CALL LIGHT IS WITHIN REACH. WILL CONTINUE TO MONITOR.
--- NOTE | 2019-09-09 14:25 | NUR ---
Patient will be admitted to care of ALOC & SEIZURE. Admited to TELEMETRY. Will go to room 108A. Belongings list completed. Report to NIKIA BARTHOLOMEW.
--- NOTE | 2019-09-09 14:30 | NUR ---
MRSA NARES SWAB COLLECTED. VITAL SIGNS CHECKED. HR 114, BP 136/68, RESP 22, O2SAT 98% ROOM AIR, TEMP 97.2.
[2019-09-09] MEDS: DEXT 5% / NACL 0.45% 1,000 ML IV SCH (14:36)
--- NOTE | 2019-09-09 14:47 | NUR ---
WAS ABOUT TO GIVE MORPHINE FOR PAIN BUT PATIENT STARTED SEIZING. DR. HERNANDEZ STATED TO GIVE ATIVAN INSTEAD, HOWEVER, MORPHINE WAS ALREADY DRAWN. PLACED MEDICATION IN THE PHARMACEUTICAL WASTE BIN.
--- NOTE | 2019-09-09 14:47 | NUR ---
PATIENT STARTED SEIZING. LASTED 2 MINUTES. PUSHED ATIVAN 1MG.
[2019-09-09] MEDS: LORazepam 2 MG/ML VIAL IVP PRN ×3 (14:50→15:55)
--- NOTE | 2019-09-09 14:50 | NUR ---
ANOTHER SEIZURE, LASTING 30 SECONDS.
--- NOTE | 2019-09-09 14:55 | NUR ---
ANOTHER SEIZURE LASTING 1 MINUTE. PUSHED IV ATIVAN. PATIENT FELL ASLEEP. O2SAT 97%, HR 80. WILL CONTINUE TO MONITOR.
[2019-09-09 15:03] LABS: BARBITURATE, URINE NEGATIVE ng/ml (NEG <=200); BENZODIAZEPINE, URINE NEGATIVE ng/mL (NEG <=200); CANNABINOID, URINE POSITIVE ng/mL (NEG <=50); COCAINE, URINE NEGATIVE ng/mL (NEG <=300); OPIATE, URINE NEGATIVE ng/mL (NEG <=2000); PHENCYCLIDINE SCREEN,URINE NEGATIVE ng/mL (NEG <=25)
[2019-09-09 15:08] LABS: CHOL/HDL RATIO 4.8 (1-4.5); PHOSPHORUS 3.1 mg/dL (2.5-4.9); THYROID STIMULATING HORMONE 2.33 uIU/mL (0.34-3.74)
[2019-09-09 15:18] LABS: MAGNESIUM 1.7 mg/dL (1.8-2.4)
[2019-09-09] MEDS ORDERED: LORazepam 2 MG/ML VIAL IVP PRN (15:35)
--- NOTE | 2019-09-09 15:42 | NUR ---
ACCOMPANIED PATIENT TO CT. ATIVAN 1MG ON HAND JUST IN CASE A SEIZURE EPISODE OCCURS.
--- NOTE | 2019-09-09 15:53 | NUR ---
ANOTHER SEIZURE LASTING 40 SECONDS. IVP ATIVAN 1MG GIVEN. PATIENT AWAKE. O2SAT 98%, 94 HR.
[2019-09-09] MEDS ORDERED: MAG SULF 2000 MG/WATER PREMIX 50 ML IV SCH (16:30)
--- NOTE | 2019-09-09 16:37 | NUR ---
HANG MAG-RIDER FOR MAG LEVEL 1.7. EXPLAINED MEDICATION. WILL CONTINUE TO MONITOR. NO SEIZURE AT THIS TIME.
--- NOTE | 2019-09-09 16:48 | NUR ---
LAB DRAW TAKEN FOR AMMONIA LEVEL AT THE RIGHT AC. PATIENT TOLERATED WELL. CURRENTLY LAYING IN BED, SOFT WRIST RESTRAINTS INTACT, CIRCULATION GOOD. NO SIGNS OF DISTRESS NOTED. WILL CONTINUE TO MONITOR
[2019-09-09] MEDS ORDERED: SODIUM PHOSPHATE 118 ML ENEM RC ONE (17:35)
[2019-09-09] MEDS ORDERED: LACTULOSE 20 GM/30 ML UDC PO ONE (17:40)
--- NOTE | 2019-09-09 17:58 | NUR ---
FLEET ENEMA GIVEN, SIDE-LYING. PATIENT TOLERATED WELL. LACTULOSE GIVEN SLOWLY TO PREVENT ASPIRATION. PATIENT TOLERATED WELL. BED IN LOW POSITION. CALL LIGHT IS WITHIN REACH. WILL CONTINUE TO MONITOR. Addendum: 09/09/19 at 1805 by Princess Michaela Addison RN TRIED MY BEST TO GIVE LACTULOSE. PATIENT WAS SPITTING IT. GIVEN ABOUT HALF OF THE DOSAGE.
--- NOTE | 2019-09-09 19:22 | NUR ---
ENDORSED PATIENT TO DELIVERY ENGINEER NURSE, PATIENT LAYING IN BED WITH SOFT TIE WRIST RESTRAINTS INTACT. SKIN INTEGRITY AND CIRCULATION GOOD. NO CURRENT SIGNS OF DISTRESS. BED IN LOW POSITION WITH SIDE RAILS UP AND PADDING IN PLACE. CHEST RISE AND FALL EVEN, BREATHING UNLABORED.
[2019-09-09 20:00] VITALS: BP 124/69
--- NOTE | 2019-09-09 20:00 | NUR ---
RECEIVED BEDSIDE REPORT FROM AM RN. PATIENT IS ASLEEP DURING ROUNDS WITH BILATERAL WRIST RESTRAINTS. PER AM RN PATIENT WAS TRYING TO GET OOB EARLIER. PATIENT AROUSABLE, MOVES WHEN YOU CALL HIS NAME BUT DOESN'T OPEN HIS EYES AND NON VERBAL. PER REPORT PATIENT IS FINNISH SPEAKING ONLY. NO SIGN AND SYMPTOMS OF DISTRESS NOTED AT THIS TIME. IVF INFUSING ON THE LFA 18 GAUGE, PATENT AND INTACT. BED IN LOW POSITION, ALL SIDE RAILS UP. SIDE RAILS PADDED FOR SAFETY. SR ON PLYWOOD FACTORY WORKER, HR-86.CALL LIGHT WITHIN REACH. WILL CONTINUE POC AND MONITORING.
[2019-09-09] MEDS: ATORVASTATIN 80 MG TAB PO SCH (21:00)
[2019-09-09] MEDS: PIPERACILLIN/TAZOBACTAM 3.375 GM in DEXTROSE 5% 50 ML IV SCH (21:20)
--- NOTE | 2019-09-09 22:00 | NUR ---
PATIENT SCHEDULED MEDICATIONS AND ANTIBIOTIC GIVEN ORDERED. HELD PO MEDS AT THIS TIME BECAUSE PATIENT IS NOT FULLY AWAKE YET. RESTRAINT CHECKED AND NO INJURY NOTED. REPOSITION PATIENT FOR COMFORT AND TO PREVENT SKIN BREAKDOWN. WILL CONTINUE FREQUENT SURVEILLANCE AND MONITORING.
[2019-09-09 23:56] VITALS: BP 102/65
--- NOTE | 2019-09-10 | NUR ---
DID ROUNDS. PT ASLEEP AT THIS TIME. NO S/SX OF DISTRESS NOTED. NO SEIZURE ACTIVITY NOTED. CHECKED PT RESTRAINT AND PROTOCOL IMPLEMENTED. NO S/SX OF INJURY NOTED. WILL CONTINUE TO MONITOR.
--- NOTE | 2019-09-10 02:00 | NUR ---
MADE ROUNDS. PT AWAKE,STILL TRYING TO GET OUT OF BED. BUT NO SEIZURE ACTIVITY NOTED.
[2019-09-10 04:00] VITALS: BP 96/56
--- NOTE | 2019-09-10 04:02 | NUR ---
PT VOMITED MODERATE AMOUNT OF BLOOD WITH SMALL BLOOD CLOTS. ZOFRAN 4MG IVP GIVEN. WILL WILL CONTINUE TO MONITOR.
[2019-09-10] MEDS: PIPERACILLIN/TAZOBACTAM 3.375 GM in DEXTROSE 5% 50 ML IV SCH ×3 (04:41→20:11)
[2019-09-10] MEDS: DEXT 5% / NACL 0.45% 1,000 ML IV SCH ×3 (04:48→23:51)
--- NOTE | 2019-09-10 05:00 | NUR ---
MADE ROUNDS. PT,IS ASLEEP. NO S/S OFNAY DISCOMFORT NOTED.
[2019-09-10 06:45] LABS: BASOPHILS % (AUTO) 0.5 % (0.0-2.0); EOSINOPHILS % (AUTO) 0.4 % (0.0-4.0); HEMATOCRIT 21.2 % (36-52); HEMOGLOBIN 7.1 g/dL (12.0-18.0); LYMPHOCYTES # (AUTO) 1.4 K/uL (2.0-11.5); LYMPHOCYTES % (AUTO) 14.9 % (20.5-51.1); MEAN CORPUSCULAR HEMOGLOBIN 29 pg (27-31); MEAN CORPUSCULAR HGB CONC 33 g/dL (33-37); MONOCYTES # (AUTO) 1.2 K/uL (0.8-1.0); MONOCYTES % (AUTO) 12.8 % (1.7-9.3); NEUTROPHILS # (AUTO) 6.7 K/uL (1.8-7.7); NEUTROPHILS % (AUTO) 71.4 % (42.2-75.2); PLATELET COUNT (AUTO) 247 K/uL (140-450); RED CELL DISTRIBUTION WIDTH 13.3 % (11.6-13.7); WHITE BLOOD COUNT (AUTO) 9.5 K/uL (4.8-10.8)
[2019-09-10 07:06] LABS: ANION GAP 14.4 (8-16); CREATININE 0.7 mg/dL (0.6-1.3); POTASSIUM 3.4 mmol/L (3.5-5.1)
--- NOTE | 2019-09-10 07:20 | NUR ---
PT IV GOT INFILTRATED ON THE LEFT FOREARM. DC/D IV, CANNULA INTACT.STARTED A NEW IV ON THE RIGHT FOREARM GAUGE 22. DR HERNANDEZ CAME AND MADE ROUNDS. UPDATED MD WITH THE PT CONDITION OVERNIGHT AND MADE AWARE THAT PT HAD AN EPISODE OF VOMITING DARK BLOOD WITH SOME CLOTS.MD AWARE AND NO FURTHER ORDER GIVEN. Addendum: 09/10/19 at 0752 by Adriana Moncada RN RN ADDENDUM : NO SEIZURE ACTIVITY NOTED OVERNIGHT.
[2019-09-10 07:21] LABS: PHOSPHORUS 2.6 mg/dL (2.5-4.9)
--- NOTE | 2019-09-10 07:40 | NUR ---
ENDORSED PT IN STABLE CONDITION TO AM NURSE FOR CONTINUITY OF CARE.
--- NOTE | 2019-09-10 07:41 | NUR ---
RECEIVED BEDSIDE REPORT FROM EMAIL DESIGNER NURSE FOR CONTINUITY OF CARE. PT IS AWAKE, CYMRAES SPEAKING, DID NOT RESPOND VERBALLY WHEN SPOKEN TO. RESPIRATIONS ARE EVEN AND UNLABORED, BREATHING TO RA. L FOREARM IV DISCONTINUED, LEFT ARM SWELLING. RT FOREARM IV 22G IS PATENT AND INTACT, INFUSING PER ORDERS. REVIEWED POC WITH PT, PT UNABLE TO COMPREHEND. NPO EXCEPT MEDS. TELE MONITOR ATTACHED. FALL PRECAUTIONS IN PLACE; BED ALARM ACTIVATED, SIGN POSTED. IV SEIZURE PRECAUTIONS IN PLACE. SAFETY MEASURES IN PLACE; CALL LIGHT WITHIN REACH, BED IN LOW POSITION. NO DISTRESS NOTED. WILL CONTINUE TO MONITOR. Addendum: 09/10/19 at 0836 by Delia Lozoya RN BILATERAL WRIST RESTRAINTS IN PLACE, TO BE REASSESSED AT 1340.
[2019-09-10 08:00] VITALS: BP 97/61
--- NOTE | 2019-09-10 08:03 | NUR ---
NOTIFIED THAT EEG WILL BE PERFORMED ON PT TODAY BETWEEN 0900 AND 0930.
[2019-09-10] MEDS: ASPIRIN 81 MG TAB.CHEW PO SCH (09:10)
[2019-09-10] MEDS: levETIRAcetam 500 MG TAB PO SCH (09:10)
[2019-09-10] MEDS: LACTOBACILLUS RHAMNOSUS GG 1 EACH CAP PO SCH (09:10)
[2019-09-10] MEDS: GABAPENTIN 300 MG CAP PO SCH (09:11)
[2019-09-10] MEDS: LORazepam 2 MG/ML VIAL IVP PRN (11:41)
--- NOTE | 2019-09-10 11:41 | NUR ---
PT IS RESTLESS AND TRYING TO GET OUT OF BED. PRN IVP ATIVAN GIVEN. ORDERED LACTULOSE ALSO GIVEN. CALLED PT'S DAUGHTER, SILVANA AT: [phone], AND E A BUSY SIGNAL, WILL TRY RECALLING. NO ACUTE DISTRESS NOTED. SAFETY MEASURES IN PLACE. WILL CONTINUE TO MONITOR.
[2019-09-10] MEDS: LACTULOSE 20 GM/30 ML UDC PO SCH ×2 (11:46→20:14)
[2019-09-10 12:00] VITALS: BP 105/77
--- NOTE | 2019-09-10 13:40 | NUR ---
DR ALEMAN RENEWED RESTRAINT ORDER. ASSESSED PT'S SKIN, NO INJURY NOTED.
--- NOTE | 2019-09-10 15:02 | NUR ---
IV GARETH HUNG, AND RUNNING PER ORDERS. NO DISTRESS NOTED.
--- NOTE | 2019-09-10 15:25 | NUR ---
PER DR. VALDEZ, ORDERED SMALL BOWEL SERIES CANCELLED.
[2019-09-10 16:00] VITALS: BP 103/74
--- NOTE | 2019-09-10 17:58 | NUR ---
SPOKE WITH PT'S DAUGHTER, SILVANA, AND UPDATED HER ON PT'S STATUS. 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 FOR ANY CHANGES IN PT'S STATUS, PLEASE CALL SILVANA AT: [phone]. PT IS AWAKE, NO ACUTE DISTRESS NOTED. WILL CONTINUE TO MONITOR.
--- NOTE | 2019-09-10 19:25 | NUR ---
ENDORSED TO JOURNEYMAN PIPEFITTER NURSE FOR CONTINUITY OF CARE. PT IS IN STABLE CONDITION.
--- NOTE | 2019-09-10 19:30 | NUR ---
RECEIVED PT IN STABLE CONDITION FROM AM NURSE. ON TELE MONITOR. BEDREST. NO DISTRESS NOTED. WITH IVF INFUSING WELL ON THE RT FAG#[id number]. STILL CONFUSED AND FOUND PT TRYING TO GET OUT OF BED. ASSISTED BACK AND REPOSITIONED WELL IN BED. ADJUST THE VIN SOFT WRIST RESTRAINT. FREQ ROUNDS NEEDED. BED ON LOW POSITION. SIDE RAILS UP X2 AND PADDED FOR SEIZURE PRECAUTION. CALL LIGHT WITHIN REACH. WILL CONTINUE TO MONITOR.
[2019-09-10 20:00] VITALS: BP 108/56
[2019-09-10] MEDS: ATORVASTATIN 80 MG TAB PO SCH (20:12)
--- NOTE | 2019-09-10 20:30 | NUR ---
PT ABLE TO TAKE HIS NIGHT MEDS INCLUDING THE LACTULOSE. SWALLOWED WELL.
--- NOTE | 2019-09-10 21:50 | NUR ---
PT ALREADY HAD X2 BLACK LIQUID STOOL. CLEANED AND KEPT DRY.
[2019-09-11] VITALS: BP 110/54
--- NOTE | 2019-09-11 | NUR ---
PT STILL CONTINUED TO BE CONFUSED AND TRYING TO GET OUT OF BED. VIN SOFT WRIST RESTRAINT ON . RELEASING 15 MIN Q 2 HRS.
[2019-09-11 03:30] VITALS: BP 99/48
--- NOTE | 2019-09-11 03:30 | NUR ---
PT SO AGITATED AND BEEN TRYING TO GET OUT OF BED. ATIVAN 1MG IVP GIVEN. WILL CONTINUE TO MONITOR.
--- NOTE | 2019-09-11 04:30 | NUR ---
PT ASLEEP. NO S/S OF ANY DISTRESS NOTED.
[2019-09-11] MEDS: PIPERACILLIN/TAZOBACTAM 3.375 GM in DEXTROSE 5% 50 ML IV SCH ×2 (04:31→13:00)
--- NOTE | 2019-09-11 06:30 | NUR ---
MADE ROUNDS. PT IS AWAKE. STILL CONFUSED TRYING TO GET OUT OF BED. ASSISTED TO REPOSITION IN BED. WILL CONTINUE TO MONITOR.
[2019-09-11 06:31] LABS: BASOPHILS # (AUTO) 0.1 K/uL (0.00-0.22); BASOPHILS % (AUTO) 0.9 % (0.0-2.0); EOSINOPHILS # (AUTO) 0.2 K/uL (0-0.4); EOSINOPHILS % (AUTO) 2.3 % (0.0-4.0); HEMATOCRIT 20.5 % (36-52); LYMPHOCYTES # (AUTO) 1.6 K/uL (2.0-11.5); LYMPHOCYTES % (AUTO) 21.2 % (20.5-51.1); MEAN CORPUSCULAR HEMOGLOBIN 29 pg (27-31); MEAN CORPUSCULAR HGB CONC 33 g/dL (33-37); MEAN CORPUSCULAR VOLUME 88.7 fL (80-94); MONOCYTES # (AUTO) 0.9 K/uL (0.8-1.0); MONOCYTES % (AUTO) 12.2 % (1.7-9.3); NEUTROPHILS # (AUTO) 4.9 K/uL (1.8-7.7); NEUTROPHILS % (AUTO) 63.4 % (42.2-75.2); PLATELET COUNT (AUTO) 233 K/uL (140-450); RED BLOOD CELL COUNT(AUTO) 2.31 MIL/uL (4.20-6.10); RED CELL DISTRIBUTION WIDTH 13.5 % (11.6-13.7); WHITE BLOOD COUNT (AUTO) 7.7 K/uL (4.8-10.8)
[2019-09-11 06:47] LABS: ANION GAP 11.3 (8-16); CARBON DIOXIDE 26.6 mmol/L (21-32); CREATININE 0.9 mg/dL (0.6-1.3)
[2019-09-11 06:53] LABS: MAGNESIUM 1.8 mg/dL (1.8-2.4); PHOSPHORUS 3.3 mg/dL (2.5-4.9)
[2019-09-11 07:01] LABS: POTASSIUM 2.9 mmol/L (3.5-5.1)
--- NOTE | 2019-09-11 07:10 | NUR ---
TRIED CALLING DR. SANTOS TO REPORT K LEVEL 2.9 THIS AM. NO ANSWER. ENDORSED TO AM NURSE LAVONNE TO LET AM RESIDENT KNOW FOR ORDER.
--- NOTE | 2019-09-11 07:11 | NUR ---
RECEIVED BEDSIDE REPORT FROM EMAIL PRODUCTION CONSULTANT NURSE FOR CONTINUITY OF CARE. PT IS AWAKE, ESTONIAN SPEAKING. RESPIRATIONS ARE EVEN AND UNLABORED, BREATHING TO RA. RT FOREARM IV 22G IS PATENT AND INTACT, INFUSING PER ORDERS. REVIEWED POC WITH PT, PT UNABLE TO COMPREHEND. NPO EXCEPT MEDS. BILATERAL WRIST RESTRAINTS IN PLACE, NO INJURY NOTED. TELE MONITOR ATTACHED. FALL PRECAUTIONS IN PLACE; BED ALARM ACTIVATED, SIGN POSTED. IV SEIZURE PRECAUTIONS IN PLACE. SAFETY MEASURES IN PLACE; CALL LIGHT WITHIN REACH, BED IN LOW POSITION. NO DISTRESS NOTED. WILL CONTINUE TO MONITOR.
--- NOTE | 2019-09-11 07:26 | NUR ---
RECEIVED CALL FROM LAB REPORTING LAB VALUES: HEMOGLOBIN 6.7 AND HEMATOCRIT: 20.5. WILL INFORM RESIDENT DOCTOR OF H&H LEVELS AND POTASSIUM LEVEL OF 2.9.
[2019-09-11 07:28] LABS: HEMOGLOBIN 6.7 g/dL (12.0-18.0)
--- NOTE | 2019-09-11 07:40 | NUR ---
INFORMED DR. WILLIAM OF HEMATOCRIT LEVEL 20.5; HEMOGLOBIN 6.7; POTASSIUM 2.9.
[2019-09-11 08:00] VITALS: BP 100/55
--- NOTE | 2019-09-11 08:53 | NUR ---
SPOKE WITH PT'S DAUGHTER SILVANA. PER SILVANA, A FAMILY MEMBER WILL COME TO THE HOSPITAL TODAY TO SIGN THE RELEASE OF HEALTH INFORMATION TO RELEASE PT'S RECORDS FROM [facility].
[2019-09-11] MEDS ORDERED: POTASSIUM CHLORIDE 40 MEQ, LIDOCAINE MPF 1% 25 MG in NACL 0.9% 250 ML IV SCH (09:00)
[2019-09-11] MEDS ORDERED: LEVE500T9 PO (09:03)
[2019-09-11] MEDS ORDERED: GABA-638 PO (09:03)
[2019-09-11] MEDS ORDERED: FERR324T11 PO (09:05)
[2019-09-11] MEDS: levETIRAcetam 500 MG TAB PO SCH (09:10)
[2019-09-11] MEDS: LACTOBACILLUS RHAMNOSUS GG 1 EACH CAP PO SCH (09:12)
[2019-09-11] MEDS: GABAPENTIN 300 MG CAP PO SCH (09:12)
[2019-09-11] MEDS: ASPIRIN 81 MG TAB.CHEW PO SCH (09:13)
[2019-09-11] MEDS: LORazepam 2 MG/ML VIAL IVP PRN (09:13)
--- NOTE | 2019-09-11 09:31 | NUR ---
PT IS RESTRESS AND AGITATED, AND CONTINUES TO ATTEMPT TO GET OUT OF BED. PRN IVP ATIVAN GIVEN ORDERED. POTASSIUM HUNG, AND RUNNING MO ORDERS, FOP POTASSIUM LEVEL OF 2.9. OTHER MEDICATIONS ALSO GIVEN. MEDICATION EDUCATION PROVIDED; PT UNABLE TO COMPREHEND. PT TOLERATED PO MEDS WELL. TELE MONITOR ATTACHED. SAFETY MEASURES IN PLACE; BED IN LOW POSITION, CALL LIGHT WITHIN REACH. WILL CONTINUE TO MONITOR.
[2019-09-11] MEDS ORDERED: SODIUM FERRIC GLUCONATE 125 MG in NACL 0.9% 100 ML IV SCH (11:00)
--- NOTE | 2019-09-11 11:28 | NUR ---
PATIENT HAS BEEN SCREENED AND CATEGORIZED HIGH NUTRITION RISK. PATIENT WILL BE SEEN WITHIN 1-2 DAYS OF ADMISSION. 09/10/19 - 09/11/19 EDEN RUIZ MBA, RD
[2019-09-11 12:00] VITALS: BP 100/55
--- NOTE | 2019-09-11 13:15 | NUR ---
ONE UNIT OF BLOOD ORDERED BY DR WILLIAM, FOR LOW H&H. CONSENT OBTAINED FROM PT'S FAMILY MEMBER, VIA TELEPHONE CONSENT, AND VERIFIED BY A SECOND RN. BLOOD WAS VERIFIED AND PICKED UP IN LAB, AND VERIFIED AT BEDSIDE BY ANOTHER RN. PRE VITAL SIGNS TAKEN: TEMP: 97.2, BP: 106/74, SPO2: 98, PULSE: 94, RR: 16. WILL CONTINUE TO MONITOR.
[2019-09-11 16:00] VITALS: BP 102/56
--- NOTE | 2019-09-11 16:55 | NUR ---
BLOOD TRANSFUSION COMPLETE, DR WILLIAM AWARE.
--- NOTE | 2019-09-11 17:11 | NUR ---
09/11/2019 RD INITIAL ASSESSMENT COMPLETED PLEASE REFER TO NUTRITION ASSESSMENT UNDER CARE ACTIVITY FOR ESTIMATED NUTRITIONAL NEEDS. RD RECOMMENDATIONS: 1. RECOMMEND CONTINUE NPO DIET. 2. WHEN MEDICALLY CLEARED FOR PO DIET, ESTIMATED NEEDS ARE CALCULATED AT A MINIMUM OF 1275KCALS & 40G PROTEIN; START WITH CLEAR LIQUID DIET (ORDERED PRIOR TO NPO) THEN ADVANCE TOLERATED TO FULL LIQUID, MECHANICAL SOFT, THEN REGULAR. 3. CONSIDER SPEECH THERAPY EVALUATION FOR TEXTURE / THICKNESS OF DIET 4. F/U 2-3 DAYS; HIGH RISK EDEN RUIZ MBA, RD
[2019-09-11 18:09] LABS: BASOPHILS # (AUTO) 0.1 K/uL (0.00-0.22); EOSINOPHILS # (AUTO) 0.2 K/uL (0-0.4); EOSINOPHILS % (AUTO) 3.1 % (0.0-4.0); HEMATOCRIT 24.4 % (36-52); LYMPHOCYTES # (AUTO) 1.8 K/uL (2.0-11.5); LYMPHOCYTES % (AUTO) 24.7 % (20.5-51.1); MEAN CORPUSCULAR HEMOGLOBIN 29 pg (27-31); MEAN CORPUSCULAR HGB CONC 33 g/dL (33-37); MEAN CORPUSCULAR VOLUME 88.9 fL (80-94); MONOCYTES # (AUTO) 1.2 K/uL (0.8-1.0); MONOCYTES % (AUTO) 16.3 % (1.7-9.3); NEUTROPHILS # (AUTO) 4.1 K/uL (1.8-7.7); NEUTROPHILS % (AUTO) 54.9 % (42.2-75.2); PLATELET COUNT (AUTO) 229 K/uL (140-450); RED BLOOD CELL COUNT(AUTO) 2.75 MIL/uL (4.20-6.10); RED CELL DISTRIBUTION WIDTH 13.7 % (11.6-13.7); WHITE BLOOD COUNT (AUTO) 7.4 K/uL (4.8-10.8)
--- NOTE | 2019-09-11 18:38 | NUR ---
SPOKE WITH PT'S DAUGHTER SILVANA AND INFORMED HER OF PT'S PENDING DISCHARGE. PER SILVANA, THE PT'S WILL BE AVAILABLE TO [employer] THE PT IN ABOUT AN HOUR.
--- NOTE | 2019-09-11 19:19 | NUR ---
DISCHARGE INSTRUCTIONS PRINTED, AND DISCHARGE PAPERWORK SIGNED. ARM BANDS, TELE MONITOR AND IV REMOVED, WITH CATHETER INTACT. SPOKE AGAIN WITH PT'S DAUGHTER, AND INFORMED HER THAT THE THE DISCHARGE INSTRUCTIONS/PACKET ARE BEING SENT HOME WITH THE PATIENT. ALL OF THE PT'S BELONGINGS ARE IN HIS POSSESSION. PT WAS CHANGED, AND IS WAITING FOR HIS TO ARRIVE TO TAKE HIM HOME. ENDORSED TO LAND SURVEYING MANAGER NURSE. PT IS IN STABLE CONDITION.
--- NOTE | 2019-09-11 19:20 | NUR ---
RECEIVED PATIENT IN STABLE CONDITION FROM AM SHIFT NURSE FOR CONTINUITY OF CARE. RESPIRATIONS EVEN, UNLABORED. NO C/O PAIN. NO S/S ACUTE DISTRESS. PATIENT IS DRESSED AND READY FOR DISCHARGE. TO SUPERIOR COURT JUDGE IN LOBBY. ALL DISCHARGE PAPERS PREPARED. IV SITE DISCONTINUED BY AM SHIFT NURSE. ALL WRIST BANDS REMOVED BY AM SHIFT NURSE. CALL LIGHT WITHIN REACH AT THIS TIME. WILL CONTINUE TO MONITOR.
[2019-09-11] MEDS: ATORVASTATIN 80 MG TAB PO SCH (20:23)
--- NOTE | 2019-09-11 20:30 | NUR ---
PATIENT DISCHARGED TO VIA WHEELCHAIR. DISCHARGE PAPERS GIVEN. ALL BELONGINGS GIVEN. PATIENT IN STABLE CONDITION.
[2019-09-13 06:16] LABS: FOLIC ACID 8.2 ng/mL (>3.0)
== END 2019-09-11 20:30 | disposition home or self-care (01) | DRG 101 ==
LOC: MED 09:19 → MTU 13:48
PROVIDERS: ADMIT General Practice; ATTEND General Practice
PROC: 30233N1 Transfusion of Nonautologous Red Blood Cells into Peripheral Vein, Percutaneous Approach (ICD-10-PCS; principal; 2019-09-11)
DX: G40.802 Other epilepsy, not intractable, without status epilepticus (principal); C49.A0 Gastrointestinal stromal tumor, unspecified site; Z86.73 Personal history of transient ischemic attack (TIA), and cerebral infarction without residual deficits; Z85.89 Personal history of malignant neoplasm of other organs and systems; D64.9 Anemia, unspecified; E78.5 Hyperlipidemia, unspecified; G90.9 Disorder of the autonomic nervous system, unspecified; K72.90 Hepatic failure, unspecified without coma; E83.42 Hypomagnesemia; E87.6 Hypokalemia; D50.9 Iron deficiency anemia, unspecified; D63.0 Anemia in neoplastic disease; K74.60 Unspecified cirrhosis of liver; Z91.14 Patient's other noncompliance with medication regimen
CPT/HCPCS: 36415; 70450; 71045; 71250; 80048; 80053; 80305; 81001; 82140; 82150; 82550; 82607; 82746; 83540; 83605; 83690; 83735; 83880; 84100; 84436; 84443; 84484; 85025; 85045; 85610; 85730; 86886; 86900; 86901; 86920; 87040; 87081; 87086; 93005; 96361; 96365; 96367; 96375; 96376; 99291; G0482; J1644; J1953; J2001; J2060; J2270; J2405; J2543; J2916; J3475; J3480; J7030; J7060; P9016